=== PATIENT | female | born 1970 | race Two or more races ===

== ENCOUNTER 2025-02-27 20:33 | Emergency (ER) | payer MEDICAID, OTHER ==
[~2025-02-27] VITALS: Ht 160 cm; Wt 66.8 kg
--- NOTE | 2025-02-27 20:56 | ED.PDOC ---
History of Present Illness HPI Comments 44-year-old female who came to ER for abdominal pain. Patient has been taking Ozempic for the past 2 months. States whenever she uses Ozempic, he usually will experience abdominal pain and nausea and vomiting. She used Ozempic again earlier today, and she started having diffuse abdominal pain, nausea and vo miting. Noted that her blood sugar dropped to 60s. Which concerned her prompting her to come to the emergency room. REVIEW OF SYSTEMS: General: No fever, no chills, or fatigue HEENT: No sore throat, no earache, no congestion, no neck pain. Cardiac: No chest pain. No palpitations. Lungs: No shortness of breath, no cough. GI: + nausea, + vomiting, no diarrhea, no constipation, + abdominal pain : No dysuria, frequency, or urgency. No hematuria. Musculoskeletal: No joint pain , no joint swelling, no extremity edema. Skin: No rash, no itching. Neuro: No headache, no dizziness, no weakness (And as sated in HPI) PHYSICAL EXAM: General: Awake, alert and oriented. No acute distress. Skin: Skin in warm, dry and intact. Appropriate color for ethnicity. HEENT: The head is normocephalic and atraumatic. Conjunctivae are clear without exudates or hemorrhage. Sclera is non-icteric. Eyelids are normal in appearance without swelling or lesions. Oral mucosa is pink and moist Neck: The neck is supple with normal range of motion. No JVD. Cardiac: Heart rate and rhythm are normal. No murmurs, gallops, or rubs are auscultated. Respiratory: No signs of respiratory distress. Lung sounds are clear in all lobes bilaterally without rales, rhonchi, or wheezes. Abdominal: Abdomen is soft, + epigastric-tender without distention, guarding or rigidity. Bowel sounds are present and normoactive in all four quadrants. Extremities: Lower extremities without edema. Neurological: The patient is awake, alert and oriented to person, place, and time with normal speech. Speech is clear. There is no facial asymmetry. Psychiatric: Appropriate mood and affect. Good judgement and insight. Chief Complaint: Abdominal Pain Time Seen by MD: 20:56 Reviewed Notes: Nurses Notes Allergies: Coded Allergies: Pioglitazone (Verified Allergy, Unknown, 02/27/25) Information Source: Patient Mode of Arrival: Ambulatory Past Medical History PAST MEDICAL HISTORY: Denies Surgical History: Denies all surgeries DOOR TO DOOR SALES REPRESENTATIVE History: Denies all DOOR TO DOOR SALES REPRESENTATIVE Hx Family History Family History: Reviewed,noncontributory to illness Social History Smoker: Non-Smoker Alcohol: Denies ETOH Use Drugs: Denies Drug Use Lives In: Home Was a procedure done? Was a procedure done?: No Differential Dx Considerations may include: Differential diagnoses considered include but are not limited to peptic ulcer disease, GERD, gastritis, pancreatitis, myocardial infarction, pericarditis, ruptured aortic aneurysm, other X-Ray, Labs, Meds, VS Vital Signs Date Time Temp Pulse Resp B/P (MAP) Pulse Ox O2 Delivery O2 Flow Rate FiO2 02/27/25 21:13 Room Air* 0 21 02/27/25 20:36 98.6 101 16 120/76 99 98.6 Lab Test 02/27/25 21:10 Range/Units White Blood Count 7.3 4.4-10.8 10^3/uL Red Blood Count 4.65 4.0-5.20 10^6/uL Hemoglobin 14.3 12.2-16.2 g/dL Hematocrit 42.0 36.0-46.0 % Mean Corpuscular Volume 90.3 80.0-100.0 fL Mean Corpuscular Hemoglobin 30.7 28.0-32.0 pg Mean Corpuscular Hemoglobin Concent 33.9 32.0-36.0 g/dL Red Cell Distribution Width 13.3 11.8-14.3 % Platelet Count 205 140-450 10^3/uL Mean Platelet Volume 8.2 6.9-10.8 fL Neutrophils (%) (Auto) 48.0 37.0-80.0 % Lymphocytes (%) (Auto) 40.6 10.0-50.0 % Monocytes (%) (Auto) 8.2 0.0-12.0 % Eosinophils (%) (Auto) 2.2 0.0-7.0 % Basophils (%) (Auto) 1.0 0.0-2.0 % Neutrophils # (Auto) 3.5 1.6-8.6 10 ^3/uL Lymphocytes # (Auto) 3.0 0.4-5.4 10 ^3/uL Monocytes # (Auto) 0.6 0-1.3 10 ^3/uL Eosinophils # (Auto) 0.2 0-0.8 10 ^3/uL Basophils # (Auto) 0.1 0-0.2 10 ^3/uL Nucleated Red Blood Cells 0.1 % Sodium Level 140 136-145 mmol/L Potassium Level 4.4 3.5-5.1 mmol/L Chloride Level 101 98-107 mmol/L Carbon Dioxide Level 28 20-31 mmol/L Anion Gap 11 5-15 Blood Urea Nitrogen 22 9-23 mg/dL Creatinine 0.90 0.550-1.02 mg/dL Glomerular Filtration Rate Calc 82 >90 mL/min BUN/Creatinine Ratio 24.4 H 10.0-20.0 Serum Glucose 116 H 74-106 mg/dL Calcium Level 9.5 8.7-10.4 mg/dL Total Bilirubin 0.3 0.2-1.0 mg/dL Aspartate Amino Transferase (AST) 17 13-40 U/L Alanine Aminotransferase (ALT) 18 7-40 U/L Alkaline Phosphatase 53 46-116 U/L Total Protein 7.3 5.7-8.2 g/dL Albumin 4.5 3.2-4.8 g/dL Lipase 97 H 12-53 U/L Current Medications Medications (Trade) Dose Ordered Sig/Connie Route Start Time Stop Time Status Last Admin Ondansetron HCl (Zofran Po) 4 mg ONCE ONCE PO 02/27/25 21:00 02/27/25 21:01 DC 02/27/25 21:11 Acetaminophen (Tylenol Tablet Or Capsule) 1,000 mg ONCE ONCE PO 02/27/25 21:00 02/27/25 21:01 DC 02/27/25 21:11 Time of 1ST Reevaluation: 20:52 Reevaluation 1ST: Unchanged Patient Education/Counseling: Need For Follow Up Family Education/Counseling: No Family Present SEPSIS Sepsis Screen Date sepsis recognized/suspect: Feb 27, 2025 Time Sepsis recognized/suspect: 2038 Recent Procedure: No On Antibiotic Therapy: No Respiratory Rate >20: No Heart Rate >90: No Temp<36 C (96.8 F) or >38.3 C: No SBP <90 or MAP <65 mmHG: No New Acute Mental Status Change: No Is the patient on CPAP, BIPAP,: No Vital Signs Date Time Temp Pulse Resp B/P (MAP) Pulse Ox O2 Delivery O2 Flow Rate FiO2 02/27/25 21:13 Room Air* 0 21 02/27/25 20:36 98.6 101 16 120/76 99 98.6 Laboratory Tests Test 02/27/25 21:10 White Blood Count 7.3 10^3/uL (4.4-10.8) Medications Medications Dose Ordered Sig/Connie Route Start Time Stop Time Status Last Admin Dose Admin Acetaminophen 1,000 mg ONCE ONCE PO 02/27/25 21:00 02/27/25 21:01 DC 02/27/25 21:11 Ondansetron HCl 4 mg ONCE ONCE PO 02/27/25 21:00 02/27/25 21:01 DC 02/27/25 21:11 Departure 1 Departure Time of Disposition: 22:23 Impression: Primary Impression: Abdominal pain Additional Impression: Elevated lipase Disposition: HOME / SELF CARE / HOMELESS Condition: Stable Additional Instructions: INSTRUCCIONES DE ELINOR DE Urgencias Instrucciones: Edyta atentamente todas las instrucciones proporcionadas en patricio paquete. Aunque le hayan dado el elinor del Departamento de Emergencias, esto no significa que tenga un "certificado de buena abbi". Hoy no se dinero realizado ningn diagnstico definitivo para mayda sntomas. Es posible que ests en proceso de desarrollar matthieu enfermedad grave. Es por eso que debe regresar al servicio de urgencias sin falta si presenta algn sntoma nuevo o que empeora (especialmente si mayda sntomas incluyen dolor en el pecho, dificultad para respirar, dolor abdominal, fiebre, dolor de alla, confusin, dificultad para georgette o caminar). Mayda niveles de lipasa estn elevados hoy. [place] podra ser un efecto secundario de Ozempic. Es muy importante que consulte con el mdico que le recet Ozempic para determinar si debe continuar tomndolo. Regrese al servicio de urgencias si el dolor abdominal no mejora en 24 horas o si contina vomitando. Tambin es muy importante que consulte a un mdico de atencin primaria dentro de los prximos 1 a 3 cardenas para realizar un seguimiento. Si no puede conseguir matthieu karina, regrese al servicio de urgencias para matthieu nueva evaluacin. Dolor abdominal: instrucciones de cuidado Imagen de los cuatro cuadrantes del abdomen. Descripcin general El dolor abdominal tiene muchas causas posibles. Algunas no son graves y mejoran por s solas en unos cardenas. Otras requieren ms pruebas y tratamiento. Si el dolor contina o empeora, es necesario volver a examinarlo y es posible que necesite ms pruebas para averiguar qu es lo que est mal. Es posible que necesite matthieu ciruga para corregir el problema. No ignore los sntomas nuevos, rodney fiebre, nuseas y vmitos, problemas para orinar, dolor que empeora y mareos. Estos pueden ser signos de un problema ms grave. Si no mejora, es posible que necesite ms pruebas o tratamiento. El mdico lo dinero examinado cuidadosamente, chyna pueden surgir problemas ms adelante. Si nota algn problema o sntomas nuevos, busque tratamiento mdico de inmediato . El seguimiento mdico es matthieu parte fundamental de centeno tratamiento y centeno seguridad. Asegrese de programar y acudir a todas las citas, y llame a centeno mdico si tiene problemas. Tambin es matthieu buena idea saber los resultados de mayda pruebas y llevar matthieu lista de los medicamentos que peggy. Refinery Operator Coking puedes cuidarte en casa? Descansa hasta que te sientas mejor. Para prevenir la deshidratacin, denisa abundante lquido. Elija agua y otros lquidos elaina hasta que se sienta mejor. Si tiene matthieu enfermedad renal, cardaca o heptica y debe limitar los lquidos, consulte con centeno mdico antes de aumentar la cantidad de lquidos que tera. Cuando sientas ganas de comer, empieza con pequeas cantidades. No tomes alcohol, cafena ni alimentos picantes, calientes o con alto contenido de grasa terrence tony o dos cardenas. Evite los medicamentos antiinflamatorios rodney la aspirina, el ibuprofeno (Advil, Motrin) y el naproxeno (Aleve). Pueden causar malestar estomacal. Hable con centeno mdico si peggy aspirina a diario por otro problema de abbi. Cundo debes pedir ayuda? Llame al 911 en cualquier momento en que crea que puede necesitar atencin de emergencia. Por ejemplo, llame si: Te desmayaste (perdiste el conocimiento). Tiene heces de color marrn o con kai lesly. Vomitas lesly o lo que parecen posos de caf. Tienes un dolor intenso en el vientre. Llame a centeno mdico ahora o busque atencin mdica inmediata si: El dolor empeora, especialmente si se concentra en matthieu andreas determinada del abdomen. Tiene fiebre nueva o ms elinor. Las heces son negras y parecen alquitrn, o tienen vetas de lesly. Tienes sangrado vaginal inesperado. Tiene sntomas de matthieu infeccin del tracto urinario. Estos pueden incluir: Dolor al orinar. Orinar con ms frecuencia de lo habitual. Lesly en la orina. Se siente mareado o aturdido, o siente que se puede desmayar. Preste atencin a los cambios en centeno abbi y asegrese de comunicarse con centeno mdico si: No ests mejorando rodney esperabas. Crditos para el dolor abdominal: instrucciones de cuidado Actualizado al: 19 2023 Autor: Personal de [employer], [facility] Comments 54-year-old female presented with epigastric abdominal pain associated with Ozempic use. No peritoneal signs on abdominal exam. No evidence of acute abdomen at this time. patient is well appearing. Labs show no leukocytosis or elevation of LFTs. There is mild elevation in lipase. Imaging not warranted at this emergently. At the time of discharge patient is afebrile and is not hypotensive. Low suspicion for acute hepatobiliary disease (including acute cholecystitis, acute pancreatitis, PUD (including perforation), acute infectious process (pneumonia, hepatitis, pyelonephritis), acute appendicitis, vascular catastrophe, bowel obstructions, viscous perforation. Presentation not consistent with other acute, emergent causes of abdominal pain at this time. Patient felt stable for discharge home to follow up with the primary care provider promptly for further evaluation. Patient advised to return to the emergency department with any new, worsening or concerning symptoms. Critical Care Note Critical Care Time?: No Stability Stability form required: No Heart Score Heart Score: Heart Score Response (Comments) Value History N/A 0 EKG N/A 0 Age N/A 0 Risk Factors N/A 0 Troponin N/A 0 Total 0 I personally scribed for CHANCE WATTERS MD ([email or web address]) on 02/27/25 at 20:56. Electronically submitted by Uri Sales ([email or web address]). CHANCE WATTERS MD Feb 27, 2025 20:56
[2025-02-27] MEDS: ACETAMINOPHEN 500 MG TAB or CAP PO ONE (21:11)
[2025-02-27] MEDS: ONDANSETRON ODT 4 MG TAB PO ONE (21:11)
[2025-02-27 21:36] LABS: Hematocrit 42.0 % (36.0-46.0); Hemoglobin 14.3 g/dL (12.2-16.2); Mean Corpuscular Hemoglobin 30.7 pg (28.0-32.0); Mean Corpuscular Volume 90.3 fL (80.0-100.0); Nucleated Red Blood Cells % 0.1 %
[2025-02-27 21:53] LABS: Alanine Aminotransferase 18 U/L (7-40); Albumin 4.5 g/dL (3.2-4.8); Alkaline Phosphatase 53 U/L (46-116); Anion Gap 11 (5-15); BUN/Creatinine Ratio 24.4 (10.0-20.0); Blood Urea Nitrogen 22 mg/dL (9-23); Calcium 9.5 mg/dL (8.7-10.4); Carbon Dioxide 28 mmol/L (20-31); Chloride 101 mmol/L (98-107); Potassium 4.4 mmol/L (3.5-5.1); Sodium 140 mmol/L (136-145); Total Protein 7.3 g/dL (5.7-8.2)
[2025-02-27 21:54] LABS: Bilirubin, Total 0.3 mg/dL (0.2-1.0)
[2025-02-27 21:55] LABS: Glucose 116 mg/dL (74-106); Lipase 97 U/L (12-53)
[2025-02-27 22:37] VITALS: TEMP 98.5
[2025-02-27] MEDS: SODIUM CHLORIDE 0.9% 1,000 ML IV ONE (22:59)
[2025-02-27 23:22] VITALS: BP 112/68; PULSE 78; RESP 18; O2SAT 97
== END 2025-02-27 23:27 | disposition home or self-care (01) ==
LOC: ER 20:33 → EDBD 20:33 → ER 23:27
DX: R10.84 Generalized abdominal pain (principal); R74.8 Abnormal levels of other serum enzymes
CPT/HCPCS: 36415; 80053; 83690; 85025; 99283; J7030; Q0162